=== PATIENT | female | born 1970 | race Caucasian/White ===

== ENCOUNTER 2024-03-02 07:30 | Emergency (ER) | payer BC ==
[2024-03-02] MEDS ORDERED: Ondansetron PF 4 MG/2 ML Vial ONE (08:23)
[2024-03-02] MEDS ORDERED: Boostrix 0.5 ML (Tdap) VIAL (>/=7 yrs of age) ONE (08:23)
[2024-03-02] MEDS ORDERED: Ketorolac Tromethamine 30 MG (1 mL) VIAL ONE (10:02)
[2024-03-02] MEDS ORDERED: Cyclobenzaprine 10 MG TAB ONE (10:02)
== END 2024-03-02 11:26 | disposition home or self-care (01) ==
LOC: CSHERS 07:30
DX: S01.01XA Laceration without foreign body of scalp, initial encounter (principal); S06.9X1A Unspecified intracranial injury with loss of consciousness of 30 minutes or less, initial encounter; E11.9 Type 2 diabetes mellitus without complications; F17.210 Nicotine dependence, cigarettes, uncomplicated; W11.XXXA Fall on and from ladder, initial encounter
CPT/HCPCS: 12001; 70450; 71045; 72125; 90471; 90715; 93005; 93010; 96374; 96375; J1885; J2405